=== PATIENT | female | born 1990 | race Caucasian/White ===

== ENCOUNTER 2021-04-17 14:33 | Emergency (ER) | payer OTHER ==
[2021-04-17 16:58] LABS: HEMOGLOBIN 13.2 gm/dl (12.3-15.3); RED BLOOD COUNT 4.81 M/UL (4.00-5.10); WHITE BLOOD COUNT 10.2 K/UL (4.5-11.0)
[2021-04-17 17:15] LABS: BUN/CREATININE RATIO 16 (0-10)
[2021-04-17] MEDS ORDERED: REGLAN10 MG PO (19:27)
[2021-04-17] MEDS ORDERED: MACROBID 100 M100 MG PO (19:27)
[2021-04-17] MEDS ORDERED: BENTYL 20MG TAB20 MG PO (19:29)
== END 2021-04-17 19:40 | disposition home or self-care (01) ==
LOC: ER1 14:33
PROVIDERS: Physician Assistant
DX: O21.0 Mild hyperemesis gravidarum (principal); O23.41 Unspecified infection of urinary tract in pregnancy, first trimester; Z3A.08 8 weeks gestation of pregnancy
CPT/HCPCS: 80053; 81001; 85025; 96374; 99284; J2550; J7030

== ENCOUNTER 2021-11-08 16:39 | Inpatient (IN) | payer OTHER ==
[~2021-11-08] VITALS: Ht 170.2 cm; Wt 119.7 kg
[~2021-11-08 16:39] MED LIST: BENTYL 20MG TAB20 MG PO; MACROBID 100 M100 MG PO; REGLAN10 MG PO
[2021-11-08] MEDS ORDERED: PRENATAL TABLE1 EAC1 PO (17:40)
[2021-11-08 18:43] LABS: HEMOGLOBIN 9.9 gm/dl (12.3-15.3); RED BLOOD COUNT 3.88 M/UL (4.00-5.10); WHITE BLOOD COUNT 11.2 K/UL (4.5-11.0)
[2021-11-08] MEDS ORDERED: IBUPROFEN600 MG PO (22:11)
[2021-11-08] MEDS ORDERED: DOCUSATE SODIU250 MG PO (22:11)
== END 2021-11-10 14:42 | disposition home or self-care (01) | DRG 806 ==
LOC: GENOP 16:39 → OB 17:15
PROVIDERS: ADMIT Obstetrics & Gynecology
PROC: 10E0XZZ Delivery of Products of Conception, External Approach (ICD-10-PCS; principal; 2021-11-08)
PROC: 10907ZC Drainage of Amniotic Fluid, Therapeutic from Products of Conception, Via Natural or Artificial Opening (ICD-10-PCS; 2021-11-08)
PROC: 3E033VJ Introduction of Other Hormone into Peripheral Vein, Percutaneous Approach (ICD-10-PCS; 2021-11-08)
DX: O48.0 Post-term pregnancy (principal); O87.0 Superficial thrombophlebitis in the puerperium; Z37.0 Single live birth; Z20.822 Contact with and (suspected) exposure to COVID-19; O87.4 Varicose veins of lower extremity in the puerperium; O13.2 Gestational [pregnancy-induced] hypertension without significant proteinuria, second trimester; Z3A.40 40 weeks gestation of pregnancy
CPT/HCPCS: 36415; 85014; 85018; 85025; J2590; U0002